=== PATIENT | female | born 1995 | race Two or more races ===

== ENCOUNTER 2018-02-03 15:31 | Emergency (ER) | payer SELFPAY ==
[~2018-02-03] VITALS: Ht 162.6 cm; Wt 76.2 kg
[2018-02-03 15:51] VITALS: BP 112/79
[2018-02-03] MEDS ORDERED: Bactrim-DS 1 tab ORAL ONE (16:00)
[2018-02-03] MEDS ORDERED: Bacitracin Oint UD TOPIC ONE (16:00)
[2018-02-03] MEDS ORDERED: Ketorolac 60mg Inj IM ONE (16:00)
[2018-02-03] MEDS ORDERED: Cephalexin 500mg cap ORAL ONE (16:00)
--- NOTE | 2018-02-03 16:04 | Emergency Room Report ---
History of Present Illness General Chief Complaint: Skin Rash/Abscess Source: Patient Present Illness HPI 22-year-old female patient presents to ER complaining of spider bite on the back of her left leg. Reports she has been 3 days ago and swelling has increased since that time. Reports TTP. Reports began draining today. Reports increase in size. Denies taking medications. Denies fever, chest pain , shortness of breath, vomiting. Reports able ambulate. Denies history of diabetes. Denies . Denies other acute symptoms. Allergies: Coded Allergies: No Known Allergies (Unverified , 02/03/18) Patient History Past Medical History: see triage record Last Menstrual Period: 01/22/18 Now: No : 1 Para: 0 Reviewed Nursing Documentation: PMH: Agreed; PSxH: Agreed Nursing Documentation-PMH Hx Cardiac Problems: No - TONSILECTOMY AND APPENDECTOMY, BRONCHITIS Review of Systems All Other Systems: negative except mentioned in HPI Physical Exam Vital Signs Date Time Temp Pulse Resp B/P (MAP) Pulse Ox O2 Delivery O2 Flow Rate FiO2 02/03/18 15:37 98.2 86 18 112/79 97 Room Air 98.2 Sp02 EP Interpretation: reviewed, normal General Appearance: well appearing, no apparent distress, alert, GCS 15, non- toxic Head: normocephalic, atraumatic Eyes: bilateral eye normal inspection, bilateral eye PERRL ENT: hearing grossly normal, normal pharynx, no angioedema, normal voice, uvula midline, moist mucus membranes Neck: full range of motion Respiratory: lungs clear, normal breath sounds, no rhonchi, no respiratory distress, no accessory muscle use, no wheezing, speaking full sentences Cardiovascular #1: regular rate, rhythm, no edema Musculoskeletal: back normal, digits/nails normal, gait/station normal, normal range of motion, non-tender Psychiatric: mood/affect normal Skin: other - posterior left thigh: 5 cm area of induration with surrounding erythema and edema, dried pus present, no pus draining, dried blood present, TTP , no fluctuance, no red streaking Medical Decision Making PA Attestation Dr. Valdivia is my supervising Physician whom patient management has been discussed with. Diagnostic Impression: Primary Impression: Bug bite Additional Impression: Cellulitis ER Course Pt. presents to the ED c/o bug bite. Ddx considered but are not limited to rash, cellulitis, abscess, atopic dermatitis, bug bite, lymphedema. Vital signs: are WNL, pt. is afebrile ER course: Ordered Toradol for pain. Provided patient with Benadryl and prednisone in ER for symptom relief. Attempted to express some pus from site of drainage, no pus expressed, blood expressible, surrounding erythema and edema noted, likely due to cellulitis versus histamine reaction. Will treat accordingly to cover for cellulitis. On physical exam, no area of induration, no red streaking, does not require I and D at this time. Will discharge patient home with antibiotics, will provide first dose of antibiotics in ER. take Tylenol for pain symptoms. Applied bacitracin and sterile gauze dressing. Used skin pen to marked area of inflammation. return to ER if spreading moves beyond area marked. Advised patient on Sitz baths and cool compresses. DISCHARGE: -Rx provided for Keflex -Rx provided for Bactrim -Rx provided for Tylenol -Rx provided for Benadryl At this time pt. is stable for d/c to home. Patient resting comfortably in no acute distress, nontoxic appearing. Will provide printed patient care instructions, and any necessary prescriptions. Patient instructed to complete current course of antibiotics. Care plan and follow up instructions have been discussed with the patient prior to discharge. Patient instructed to follow-up with primary care provider in 3 - 5 days and discuss further referral to [facility] rever[facility] and vascular physician. Patient questions asked and answered. ER precautions given. Patient instructed to return to ER immediately for any new or worsening of symptoms including but not limited to increasing SOB, persistent fever, intractable vomiting, calf pain. - Please note that this Emergency Department Report was dictated using [employer] was[employer] steam technology software, occasionally this can lead to erroneous entry secondary to interpretation by the dictation equipment. Last Vital Signs Date Time Temp Pulse Resp B/P (MAP) Pulse Ox O2 Delivery O2 Flow Rate FiO2 02/03/18 15:51 98.2 78 18 112/79 97 Room Air 98.2 Disposition: HOME, SELF-CARE Condition: Stable Scripts Acetaminophen* (TYLENOL EXTRA STRENGTH*) 500 Mg Tablet 500 MG ORAL Q8H PRN for Prn Headache/Temp > 101, #30 TAB 0 Refills Prov: Epi Stuart P.A. 02/03/18 Trimethoprim/Sulfamethoxazole 160/800* (BACTRIM DS TABLET*) 1 Each Tablet 1 TAB ORAL DAILY, #13 TAB Prov: Epi Stuart 02/03/18 Cephalexin* (KEFLEX*) 500 Mg Capsule 500 MG ORAL EVERY 12 HOURS, #13 CAP 0 Refills Prov: Epi Stuart 02/03/18 Diphenhydramine Hcl* (BENADRYL*) 25 Mg Capsule 25 MG ORAL DAILY PRN for Itching, #30 CAP Prov: Epi Stuart 02/03/18 Patient Instructions: Cellulitis, [id number], Insect Bite, [id number] Additional Instructions: Followup with primary care provider in 3 -5 days. Take medications as directed. Patient questions asked and answered. ER precautions given, patient instructed to return to ER immediately for any new or worsening of symptoms including but not limited to worsening of infection , red streaking, fever, intractable vomiting, chest pain, shortness of breath. Epi Stuart Feb 03, 2018 16:04
[2018-02-03] MEDS ORDERED: CEPHALEXIN500 MG ORAL (16:49)
[2018-02-03] MEDS ORDERED: BACTRIM DS TAB1 EAC1 ORAL (16:49)
[2018-02-03] MEDS ORDERED: BENADRYL25 MG ORAL (16:49)
[2018-02-03 16:59] VITALS: BP 115/78
[2018-02-03] MEDS ORDERED: TYLENOL EXTRA500 MG ORAL (17:06)
== END 2018-02-03 17:30 | disposition home or self-care (01) ==
LOC: EMR 16:04
DX: S70.362A Insect bite (nonvenomous), left thigh, initial encounter (principal); W57.XXXA Bitten or stung by nonvenomous insect and other nonvenomous arthropods, initial encounter; Y92.9 Unspecified place or not applicable; L03.116 Cellulitis of left lower limb
CPT/HCPCS: 96372; 99284; J7512